=== PATIENT | male | born 1965 | race Caucasian/White ===

== ENCOUNTER 2023-09-28 17:46 | Emergency (ER) | payer BC ==
[2023-09-28 17:58] VITALS: BP 127/79; PULSE 106; RESP 18; TEMP 97.3; BMI 38.9
[2023-09-28] MEDS ORDERED: SODIUM CHLORIDE 1,000 ML IV SCH (18:30)
[2023-09-28 19:50] LABS: BASO % 0.2 % (0-2.0); EOS % 1.2 % (0-4.5); HEMATOCRIT 47.2 % (35.4-49); HEMOGLOBIN 15.6 GM/dL (11.7-16.9); LYMPH % 26.7 % (8-40); MCH 28.6 pg (25.7-33.7); MEAN CELL VOLUME 86.7 fl (80-96); MONO % 7.8 % (3.8-10.2); NEUT % 64.1 % (42.8-82.8); PLATELET COUNT 277 10^3/uL (134-434); RBC 5.44 M/mm3 (4.00-5.60); RDW 14.9 % (11.9-15.9); WHITE BLOOD COUNT 8.3 K/mm3 (4.0-10.0)
[2023-09-28 19:59] LABS: INR 0.96 (0.83-1.09); PROTHROMBIN TIME (PATIENT) 11.1 SEC (9.7-13.0)
[2023-09-28 20:18] LABS: POTASSIUM 5.1 mmol/L (3.5-5.1)
[2023-09-28 20:20] LABS: CALCIUM 9.4 mg/dL (8.5-10.1)
[2023-09-28 20:21] LABS: ALBUMIN 3.5 g/dl (3.4-5.0)
[2023-09-28 20:25] LABS: TOT PROT 7.2 g/dl (6.4-8.2)
[2023-09-28 20:27] LABS: BILIRUBIN,TOTAL 1.1 mg/dL (0.2-1)
[2023-09-28] MEDS ORDERED: valACYclovir HCL 500 MG TABLET (FP) PO ONE (22:21)
[2023-09-28] MEDS ORDERED: predniSONE 20 MG TABLET (UD) PO ONE (22:21)
[2023-09-28] MEDS ORDERED: predniSONE 20 MG TABLET (UD) ONE (22:27)
[2023-09-28] MEDS ORDERED: valACYclovir HCL 500 MG TABLET (FP) ONE (22:28)
== END 2023-09-28 22:56 | disposition home or self-care (01) ==
LOC: JER 17:46
DX: G51.0 Bell's palsy (principal); U07.1 COVID-19
CPT/HCPCS: 0241U-QW; 36415; 70450-TC; 80053; 80061; 82550; 82553; 82962; 83036; 84484; 85025; 85610; 85730; 86850; 86900; 86901; 93005; 93010; 99285-25